=== PATIENT | female | born 1960 | race Caucasian/White ===

== ENCOUNTER → 2017-04-06 07:34 | Outpatient (CLI) | payer MEDICAID | END | disposition home or self-care (01) | LOC: D.RAD 07:34 | DX: K21.9 Gastro-esophageal reflux disease without esophagitis (principal); K22.4 Dyskinesia of esophagus ==

== ENCOUNTER 2017-06-28 06:17 | Day surgery (SDC) | payer MEDICAID ==
[2017-06-27 11:36] LABS: HEMATOCRIT 38.1 % (36.0-48.0); HEMOGLOBIN 11.7 g/dL (12-16); MCH 26.5 pg (26.0-34.0); MCHC 30.7 g/dL (31.0-37.0); MCV 86.2 fL (80.0-100.0); MEAN PLATELET VOLUME 9.5 fL (7.4-10.4); RBC 4.42 10x6/uL (4.00-5.40); RDW 13.2 % (11.5-14.5)
[~2017-06-28] VITALS: Ht 158.8 cm; Wt 83.6 kg
[~2017-06-28 06:17] MED LIST: ACETAMINOPHEN500 M1 PO; BREO ELLIPTA 11 EACH INH; FLUTICASONE PRO16 GM NASAL; KLONOPIN0.5 MG PO; OMEPRAZOLE20 M1 PO; OYST-CAL-5001 TAB PO; PROAIR HFA8.5 GM INH; VITAMIN B-122500 MCG PO; VITAMIN D250000 UNIT PO; ZANTAC 7575 MG PO; ZYRTEC10 MG PO
[2017-06-28 07:58] VITALS: BP 144/83; BMI 33.2
[2017-06-28 14:32] VITALS: BP 156/83
--- NOTE | 2017-06-28 15:00 | OP ---
PATIENT NAME: KEANU HYMAN MEDICAL RECORD: [id number] :64 LOCATION:D.[id number] ADMISSION DATE: SURGEON: MEY MORATAYA MD DATE OF OPERATION: 06/28/2017 SURGEON: Juan Davenport MD MANAGER OF SECURITY: Mey Morataya MD OPERATIVE COURSE: For full details of the procedure, please see Dr. Davenport's operative note. I assisted Dr. Davenport on today's operation. Due to the complexity of the operation, we performed a laparoscopic hiatal hernia repair with Danny fundoplication. I assisted Dr. Davenport during all hernandez portions of the operation, which included reduction of the hiatal hernia, dissection of the hernia sac which was performed with a combination of blunt dissection and electrocautery, closure of the diaphragmatic crura as well as creation of the Danny fundoplication. I assisted with the hernandez portions of Harmonic scalpel dissection, blunt dissection, retraction as well as laparoscopic suturing performed throughout the operation. TRANSINT:[id number] Voice Confirmation ID: [id number] DOCUMENT ID: [id number] MEY MORATAYA MD at 1500 CC: [id number] DICTATION DATE: 06/28/17 1251 LEAN MANUFACTURING COORDINATOR: 06/28/17 [id number] [place] [address]
--- NOTE | 2017-06-28 17:45 | NUR ---
PT STILL NAUSEOUS AND VOMITING, RN LICHA FLUSHED PT NG TUBE, PT STATED FEELS A LITTLE BETTER, LANDSCAPING SPECIALIST STARTED WELL DILAUDID STANDARD SETINGS. 0.2 / NO LOCKOUT
[2017-06-28 18:05] VITALS: BP 136/76; Ht 158.8 cm; Wt 83.6 kg
[2017-06-28 21:36] VITALS: BP 104/63
--- NOTE | 2017-06-28 22:00 | NUR ---
AROUSES TO VERBAL STIMULI.ABD WITH BANDAIDS INTACT TO INCISION SITES. IV INFUSING TO LEFT ARM WITHOUT REDNESS OR EDEMA NOTED. MISSILE MECHANIC DILAUDID IN USE FOR PAIN CONTROL. CL IN REACH
--- NOTE | 2017-06-29 00:47 | NUR ---
PATIENT IS RESTING QUIETLY WITH EYES CLOSED. NO SIGNS OF DISTRESS NOTED. HOB 45 DEGREES. BED IN LOWEST POSITION. DOOR OPEN. RESPIRATIONS ARE EVEN AND UNLABORED.
--- NOTE | 2017-06-29 01:50 | NUR ---
AWAKE,ALERT. NO COMPLAINTS VOICED. CL IN REACH.
--- NOTE | 2017-06-29 05:19 | NUR ---
UP IN CHAIR AT BEDSIDE WATCCHING TV. TOLERATING WELL. NO CCOMPLAINTS VOICED. CL IN REACH
[2017-06-29 05:30] LABS: BASOPHILS 0.1 % (0-2); EOSINOPHILS 0 % (0-7); HEMATOCRIT 34.7 % (36.0-48.0); HEMOGLOBIN 10.4 g/dL (12-16); IMMATURE GRANULOCYTES 0.2 % (0-5); LYMPHOCYTES 12.5 % (15-50); MCH 26.2 pg (26.0-34.0); MCV 87.4 fL (80.0-100.0); MONOCYTES 11.9 % (2-11); NEUTROPHILS 75.3 % (40-80); PLATELET COUNT 328 10x3/uL (130-400); RBC 3.97 10x6/uL (4.00-5.40); RDW 13.6 % (11.5-14.5)
[2017-06-29 05:34] LABS: WBC 10.7 10x3/uL (4.8-10.8)
[2017-06-29 06:08] LABS: ALBUMIN 2.9 g/dL (3.4-5.0); ALKALINE PHOSPHATASE 74 U/L (46-116); ALT (SGPT) 90 U/L (10-68); CALC OSMOLALITY 279 mosm/kg (275-300); CALCIUM 8.5 mg/dL (8.5-10.1); CARBON DIOXIDE 26.3 mmol/L (21.0-32.0); CHLORIDE - SERUM 104 mmol/L (98-107); CREATININE - SERUM 0.8 mg/dL (0.6-1.3); GLUCOSE 129 mg/dL (74-106); MAGNESIUM - SERUM 1.8 mg/dL (1.8-2.4); PHOSPHOROUS 3.2 mg/dL (2.5-4.9); POTASSIUM - SERUM 4.1 mmol/L (3.5-5.1); SODIUM 139 mmol/L (136-145); UREA NITROGEN 13 mg/dL (7-18); eGFR NON AFRICAN AMERICAN 79 mL/min (90-120)
[2017-06-29 06:50] VITALS: BP 102/72
[2017-06-29 09:13] VITALS: BP 128/64
--- NOTE | 2017-06-29 10:10 | NUR ---
PT STATED THAT PAIN MED IN MOLD YARD SUPERVISOR MAKES HER VERY NAUSEOUS, WILL SEE WHAT ELSE SHE MAY HAVE, PT STATED ETRA STRENGTH TYLENOL WORKS FOR HER
--- NOTE | 2017-06-29 11:45 | NUR ---
DC'D HOME WITH FAMILY. ESCORTED TO VEHICLE BY NURSE VIA WC WITH BELONGINGS.
--- NOTE | 2017-07-04 15:43 | OP ---
PATIENT NAME: KEANU HYMAN MEDICAL RECORD: [id number] :64 LOCATION:D.OPS ADMISSION DATE: SURGEON: ARUNA NICOLE MD DATE OF OPERATION: 06/28/2017 PREOPERATIVE DIAGNOSES: 1. Intractable gastroesophageal reflux disease. 2. Volume reflux. 3. Hiatal hernia, large. POSTOPERATIVE DIAGNOSES: 1. Intractable gastroesophageal reflux disease. 2. Volume reflux. 3. Hiatal hernia, large. PROCEDURES: 1. Laparoscopic hiatal hernia posterior crural repair. 2. Laparoscopic Danny fundoplication. SURGEON: Aruna Nicole MD SALES WAREHOUSE DRIVER: MEY MORATAYA MD (JJ) DRAINS: None. COMPLICATIONS: None. The risks, possible complications and alternatives to procedure were explained to the patient. She elects to proceed. OPERATIVE COURSE: The patient was conveyed to the operating room electively on 06/28/2017. General anesthesia was induced by the anesthesia staff. The abdomen was sterilely prepped and draped. A small skin francisco was accomplished in the left upper quadrant. A Veress needle was inserted through the skin francisco into the peritoneal cavity. CO2 insufflation was begun. Once a sufficient pneumoperitoneum had been achieved, a 5-mm trocar was inserted through an incision in the left side of the abdomen. Under direct internal vision utilizing a television camera, a 12-mm trocar was inserted through an incision superior to the umbilicus. An 11-mm trocar was inserted through an incision in the right side of the abdomen. Another 5-mm trocar was inserted far laterally in the right upper quadrant. Another 5-mm trocar was inserted far laterally in the left upper quadrant. An incision was accomplished in the epigastrium just inferior into the left of the xiphoid process. The Cami retractor was placed at the superior most 5-mm trocar site through which the trocar had not been inserted. The Cami retractor was placed and elevated the left lateral segment of the liver. I incised the phrenicoesophageal ligament. I dissected up into the mediastinum freeing up the esophagus. The stomach and esophagus were pulled down into the abdominal cavity. Additional dissection of the phrenicoesophageal ligament was performed with excision of the hernia sac. A retroesophageal window was created. I divided some of the short gastrics along the greater curve of the stomach. A posterior crural repair was performed utilizing a running 2-0 Stratafix suture. I then brought the fundus of the OPERATIVE REPORT [id number] KEANU HYMAN stomach behind the esophagus. A portion of the esophagogastric junction fat pad was excised. There is about 6 cm of esophagus was pulled down into the abdominal compartment. A Danny fundoplication was performed utilizing a 2-0 polypropylene Stratafix suture. I sutured the anterior esophagus to the stomach. Three throws of the suture, which were through and through sutures to the fundus of the stomach on either side were accomplished. There was no bleeding. I irrigated and aspirated in the left upper quadrant. The Cami retractor was removed. There was no further bleeding. The Norman-Judith suture closure device was used to close the 11 and 12-mm trocar sites. The skin incisions were closed with interrupted intracuticular 4-0 Vicryls. Benzoin and Steri-Strips were applied. The patient was then extubated and conveyed to post-anesthesia care unit where she was in stable condition. Due to the complexity of this procedure, 2 attending surgeons were necessary for the successful completion of this operative procedure. TRANSINT:[id number] Voice Confirmation ID: [id number] DOCUMENT ID: [id number] ARUNA NICOLE MD at 1548 CC: CODI YUSUF MD and MONE CALVILLO MD [id number] DICTATION DATE: 06/28/17 145 LINE LEADER: 06/28/17 1555 [facility] 06/29/17 [id number] [place] [address]
== END 2017-06-29 10:00 | disposition home or self-care (01) ==
LOC: D.MS 06:17 → D.OPS 06:17 → D.PAN 08:50 → D.OPS 09:30 → D.MS 13:55 → D.OPS 06-29 10:00
PROVIDERS: Anesthesiology; Surgery
DX: K21.9 Gastro-esophageal reflux disease without esophagitis (principal); K44.9 Diaphragmatic hernia without obstruction or gangrene; Z01.812 Encounter for preprocedural laboratory examination

== ENCOUNTER 2019-03-22 09:00 | Outpatient (CLI) | payer MEDICARE, MEDICAID ==
[2017-06-28 18:05] VITALS: BMI 33.2
== END 2019-03-22 10:00 | disposition home or self-care (01) ==
LOC: D.MAMMO 09:00
PROVIDERS: ATTEND Nurse Practitioner Family
DX: Z12.31 Encounter for screening mammogram for malignant neoplasm of breast (principal)

== ENCOUNTER 2019-04-23 12:39 | Outpatient (CLI) | payer MEDICARE, MEDICAID ==
[2017-06-28 18:05] VITALS: BMI 33.2
== END 2019-04-23 23:59 | disposition home or self-care (01) ==
LOC: D.MAMMO 12:39
PROVIDERS: ATTEND Nurse Practitioner Family
DX: R92.8 Other abnormal and inconclusive findings on diagnostic imaging of breast (principal)

== ENCOUNTER 2020-03-18 12:31 | Emergency (ER) | payer MEDICARE, MEDICAID ==
[~2020-03-18] VITALS: Ht 158.8 cm; Wt 71.4 kg
[2020-03-18 12:38] VITALS: Ht 158.8 cm; Wt 71.4 kg
[2020-03-18] MEDS ORDERED: CELEXA10 MG PO (12:39)
[2020-03-18 13:07] VITALS: BP 144/77
== END 2020-03-18 13:09 | disposition home or self-care (01) ==
LOC: D.ER 12:31
DX: R41.0 Disorientation, unspecified (principal); T43.225A Adverse effect of selective serotonin reuptake inhibitors, initial encounter; J45.909 Unspecified asthma, uncomplicated; F31.9 Bipolar disorder, unspecified